=== PATIENT | male | born 1970 | race Caucasian/White ===

== ENCOUNTER 2016-08-19 21:07 | Observation (INO) | payer SELFPAY ==
[~2016-08-19] VITALS: Ht 177.8 cm; Wt 83.5 kg
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
--- NOTE | ~2016-08-19 | ER ---
PATIENT'S NAME: ALEXEY KUHN [facility] AGE: 45 Y [address] ROOM: [place] [address] LOCATION: [facility] ADMIT DATE: 08/20/2016 ER/Outpatient Report DISCHARGE DATE: FAMILY PHYSICIAN: PHYSICIAN, UNKNOWN ATTENDING PHYSICIAN: LARRY PETERSON CHIEF COMPLAINT: Fall down stairs. HISTORY OF PRESENT ILLNESS: The patient arrives by ambulance from [place]. They state he has had some decreased interactivity and intermittent loss of consciousness. Always, he has been brief. He was initially verbal and has had decline in his response since then. Vital signs have been appropriate. The patient states he has significant pain in his left shoulder and has diabetes. He has had shoulder surgery about a year and half ago. He denies any other acute issues at this time. He has fallen like this before and just kind of passed out, he does not know why. No other acute issues at this time. PAST MEDICAL HISTORY: Documented on the record and reviewed by me. SOCIAL HISTORY: Documented on the record and reviewed by me. MEDICATIONS: Documented on the record and reviewed by me. ALLERGIES: DOCUMENTED ON THE RECORD AND REVIEWED BY ME. REVIEW OF SYSTEMS: All systems reviewed and negative except as noted in the HPI. PHYSICAL EXAMINATION: VITAL SIGNS: Blood pressure 159/91, pulse 102, respiratory rate is 78, temp is 98.7, SpO2 is 100% on 15 L, non-rebreather. Pain level is rated at 9/10. GENERAL: Age-appropriate male, in no obvious distress. He had an obvious pain holding his left shoulder. NEURO: The patient is awake, but difficult to arouse initially. He talks appropriately, but you have to encourage him significantly to do so. He appears as though he is just staring off into space. He does have purposeful movement while he is being evaluated but often times will not communicate with the examiner. He does move all extremities appropriately. 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 ROOM: [place] [id number] LOCATION: [facility] ADMIT DATE: 08/20/2016 ER/Outpatient Report DISCHARGE DATE: FAMILY PHYSICIAN: PHYSICIAN, UNKNOWN ATTENDING PHYSICIAN: LARRY PETERSON hands, but is very difficult to get him to do so on the left side. He moves both feet and ankles appropriately. He does have diabetic neuropathy and has some decreased sensation in the feet. HEENT: Normocephalic, atraumatic. The TMs are normal. No midface instability. Eyes are PERRL. Extraocular movements are intact. The nasal mucosa and oral mucosa are normal to inspection and palpation. No obvious abnormalities. NECK: C-collar is in place. No tracheal deviation. There is some pain in the neck, particularly in the lower C-spine. CHEST: Chest wall is tender to palpation throughout the left side and up into the left shoulder. HEART: Regular rate and rhythm. LUNGS: Clear to auscultation with bilateral breath sounds present. ABDOMEN: Soft, nontender, and nondistended. No rebound, guarding, or masses. PELVIS: Stable. : Normal male genitalia and circumcised. BACK: Diffusely tender throughout the lower thoracic and diffuse lumbar spine. No step-offs appreciated. The patient has normal rectal tone. No gross blood. EXTREMITIES: Warm and well perfused. Significant severe pain in the left shoulder region without crepitus. Intermittently able to examine it. No obvious deformities. The extremities are all neurovascularly intact with brisk pulses and brisk capillary refill. SKIN: Warm, dry, and intact. No obvious breakdowns and no obvious contusions. LABORATORY DATA AND X-RAYS: CT scan of the head, C-spine, chest, abdomen, and pelvis are without abnormalities per Radiology read. Plain films of the left knee did not reveal any abnormalities. Chest x-ray without rib fractures or pneumothorax. Labs: Urinalysis is normal. Serum lactate is 3.8. CBC is without significant abnormalities. Blood gas: pH 7.40, pCO2 is 41, PO2 is 34, bicarb is 24.9. This is a venous sample. Calcium 4.6, sodium 133, potassium 4.1, glucose 434, PTT is 25, INR is 1.1, fibrinogen is 325. Serum alcohol is below detectable threshold. Amylase and lipase are 29 and 123 respectively. Blood type is A positive. IMPRESSION: 1. Syncope undetermined etiology, recurrent. 2. Severe left shoulder pain. 3. Persistent neck pain. 4. Elevated blood sugar with poorly controlled diabetes. EMERGENCY DEPARTMENT COURSE: PATIENT'S NAME: ALEXEY KUHN [facility] AGE: 45 Y [address] ROOM: [id number] [place], [place] [address] LOCATION: [facility] ADMIT DATE: 08/20/2016 ER/Outpatient Report DISCHARGE DATE: FAMILY PHYSICIAN: PHYSICIAN, UNKNOWN ATTENDING PHYSICIAN: LARRY PETRESON The patient is seen and evaluated as above. He was assessed by trauma protocols. Imaging does not reveal any abnormalities. I specifically looked at his shoulder on the films and there was no obvious fracture abnormality appreciated and soft tissue damage likely. The patient had persistent neck pain upon trying to clear his C-spine and thus he was placed in an Howard collar, which he intermittently would wear in the ER. He was given fentanyl and [place] for pain with poor pain control. We did try to ambulate the patient, but he had a syncopal episode. At that time, an EKG was obtained with no significant abnormalities per my read. The results of the CT scans were obtained and the patient was ultimately admitted to the Hospitalist Service for further evaluation and treatment of the syncopal episode as there is no significant injury at this time. He was also given some Toradol for his pain with no significant improvement. He was given 5 units of insulin to help control his blood sugars. No evidence of DKA or significant metabolic derangement related to that. Urine drug screen is pending. He remained stable otherwise. We will admit him to the Hospitalist Service for further evaluation and treatment. MD MARILU CHILDERS/modl /[id number] d: 08/20/16 0748 t: 08/29/1614, OUTPATIENT REPORT
--- NOTE | ~2016-08-19 | DS ---
PATIENT'S NAME: ALEXEY KUHN [facility] AGE: 45 Y [address] ROOM: [place] [address] LOCATION: [facility] ADMIT DATE: 08/20/2016 Discharge Summary DISCHARGE DATE: 08/20/2016 FAMILY PHYSICIAN: Corey Garnica MD ATTENDING PHYSICIAN: Rubens Hernandez Please see the admitting H and P (history and physical) dictated by Dr. Hernandez for a more detailed outline of the patient's presentation. DISCHARGE DIAGNOSES: 1. Status post fall. 2. Syncopal episode. 3. Chronic pain. 4. Diabetes, type 2. 5. Anxiety/depression. 6. Hypothyroidism. DISCHARGE MEDICATIONS: 1. Neurontin 800 mg p.o. t.i.d. 2. Glyburide 5 mg p.o. daily. 3. Levothroid 100 mcg p.o. daily. 4. Protonix 40 mg p.o. daily. 5. Zocor 40 mg p.o. at bedtime. 6. Tricor 160 mg p.o. at bedtime. 7. Oxycodone HCl 10 mg p.o. q.4 hours p.r.n. pain. 8. Xanax 1 mg p.o. daily p.r.n. anxiety. 9. Flexeril 10 mg p.o. daily p.r.n. spasm and sleep. 10. Farxiga 10 mg p.o. daily. 11. Nicorette gum 4 mg p.o. every 2 hours p.r.n. 12. It Works supplement 2 capsules daily. Please refer to the admitting H and P (history and physical) dictated by Dr. Hernandez. LABORATORY DATA AND DIAGNOSTIC STUDIES: CT scan of the head, C-spine, chest, abdomen, and pelvis are without abnormalities. No acute fractures or acute injuries. The patient did have an elevated TSH (thyroid-stimulating hormone) of 6.180. T4 was scheduled to be obtained. The patient was discharged before this was obtained. Urine drug screen was positive for benzodiazepines and opiates. Cardiac enzymes x1 were negative. PATIENT'S NAME: ALEXEY KUHN [facility] AGE: 45 Y [address] ROOM: [place] [address] LOCATION: [facility] ADMIT DATE: 08/20/2016 Discharge Summary DISCHARGE DATE: 08/20/2016 FAMILY PHYSICIAN: Corey Garnica MD ATTENDING PHYSICIAN: Rubens Hernandez Hemoglobin A1c is 9.0. HOSPITAL COURSE: Please refer to the admitting H and P (history and physical). The patient was admitted to [facility]. Pain was his cheif complaint. He was given morphine IV intermittently for severe pain alonf with oral oxycodone at this home dose of 10mg, this was ordered TID. The patient was seen in the late afternoon on 08/20/2016. The morphine by vein was discontinued. At that point, the patient was motivated to discharge home. The patient was able to have his Marty collar removed, given no acute fracture seen on the CT scan. DISCHARGE MEDICATIONS: Ultimately, the patient is being discharged home on his home medicines. DISCHARGE FOLLOWUP: He should follow up with Dr. Corey Garnica, his primary care physician on a p.r.n. basis. The patient voiced verbal understanding. SURINDER CASANOVA PA-C FOR MD NELSON CHUNG/modl /[id number] CC: Corey Garnica MD d: 08/21/16 0242 t: 08/23/16 1822, DISCHARGE SUMMARY
[~2016-08-19 21:07] MED LIST: AUGMENTIN875 MG PO; CYCLOBENZAPRINE5 MG; CYMBALTA30 MG PO; FARXIGA10 MG PO; FASTIN **IA 9/30 MG PO; FLEXERIL10 MG PO; GABAPENTIN800 MG PO; GLUCOPHAGE1000 MG PO; GLYBURIDE5 MG PO; JANUMET 50-1,01 EACH PO; LEVOTHROID (S100 MCG PO; LOTRIMIN30 GM TOP; MOTRIN400 MG PO; NICORETTE4 MG PO; NORCO 10-325 T1 EACH PO; OXYCODONE HCL10 MG PO; PROTONIX40 MG PO; SENOKOT S (S1 TABLET PO; SYNTHROID25 MCG PO; TRICOR 160 MG160 MG PO; XANAX1 MG PO; ZOCOR40 MG PO; [UNRECOGNIZED DRUG - OTHER] PO; [UNRECOGNIZED DRUG - OTHER] PO
[2016-08-19 21:33] LABS: BASOPHIL # 0.1 K/uL (0.0-0.2); BASOPHIL % 0.7 %; EOSINOPHIL # 0.2 K/uL (0.0-0.5); EOSINOPHIL % 1.6 %; HEMATOCRIT 45.5 % (37.0-53.0); HEMOGLOBIN 15.5 g/dL (12.0-17.0); IMMATURE GRANULOCYTE % 0.3 %; LYMPHOCYTE # 2.4 K/uL (0.8-4.0); LYMPHOCYTE % 26.6 %; MCH 29.6 pg (27.0-34.0); MCHC 34.1 gm/dL (32.0-36.5); MCV 86.8 fl (83.0-98.0); MONOCYTE # 0.7 K/uL (0.0-1.0); MONOCYTE % 7.2 %; MPV 9.3 fl (9.4-12.4); NEUTROPHIL # (ANC) 5.8 K/uL (1.4-9.0); NEUTROPHIL % 63.6 %; NRBC % 0 /100WBC (0-0.00); PLATELET COUNT 243 K/uL (150-450); RBC 5.24 M/uL (4.00-6.00); RDW-CV 12.7 % (11.9-14.6); WBC 9.2 K/uL (4.0-11.0)
[2016-08-19 21:36] LABS: BICARBONATE 24.9 mmol/L (18.0-23.0); PCO2 41 mmHg (35-45); PO2 34 mmHg (80-90)
[2016-08-19 21:37] LABS: POTASSIUM 4.1 mEq/L (3.7-5.1); SODIUM 133 mEq/L (135-145)
[2016-08-19 21:44] LABS: INR - (THERAPEUTIC) 1.1 (0.9-1.1); PROTIME 11.6 SECONDS (9.6-11.1); PTT 25 SECONDS (25-32)
[2016-08-19 21:55] LABS: ANION GAP 11.1 (10.0-19.0); BLOOD UREA NITROGEN 12 mg/dL (6-24); CHLORIDE 100 mMol/L (96-110); CREATININE 1.2 mg/dL (0.6-1.3); ESTIMATED GFR (MDRD EQUATION) > 60
[2016-08-19 23:01] LABS: BILIRUBIN URINE NEGATIVE (NEGATIVE); BLOOD URINE NEGATIVE /UL (NEGATIVE); COLOR URINE YELLOW (YELLOW); GLUCOSE URINE 1000 mg/dL (NEGATIVE); KETONE URINE NEGATIVE (NEGATIVE); LEUKOCYTES URINE NEGATIVE /UL (NEGATIVE); NITRITE URINE NEGATIVE (NEGATIVE); PROTEIN URINE NEGATIVE (NEGATIVE); SPEC GRAVITY URINE 1.005 (1.003-1.035); TURBIDITY URINE CLEAR (CLEAR); UROBILINOGEN URINE NORMAL (NORMAL)
--- NOTE | 2016-08-20 02:40 | NUR ---
PT ADMITTED POST FALL. FELL DOWN 13 STEPS AT HOME AND LANDED ON HARD FLOOR. IN ER ATTEMPTED TO AMBULATE AND HAD SYNCOPAL EPISODE HITTING THE FLOOR. HX OF CHRONIC LEFT ARM PAIN. STATES NECK PAIN-IN ASPEN COLLAR. HAS NIDDM. HX OF SMOKING AND CHEWING TOBACCO. HAS CHRONIC NEUROPATHY TO BILATERAL TOES. IN ER DID HAVE EPISODE OF BEING LESS RESPONSIVE FOR ABOUT 10-20 SECONDS WHILE LYING DOWN WELL.
--- NOTE | 2016-08-20 04:59 | NUR ---
Significant Event:Patient alert and oriented x3. Stood at bedside with assist only. Repostions self in bed. C/o pain to left shoulder into back with morphine x 1 at 0325 and oxycodone x1 at 0449. IV infusing ns to rt forearm x 1 liter at 150ml/hr. Accuchecks ac/hs with mild ssi. Voids per urinal standing up. Did notify Dr. medel of patient's depression and sucidal ideation. Pt is tearful easily, but has been willing to discuss some of his concerns. Does c/o some numbness to bilateral toes that has been chronic-moves all extremeties. Follows commands. Follow up:Monitor psychological status. Pain contorl.
[2016-08-20 06:38] LABS: CPK 56 IU/L (35-332)
[2016-08-20 07:13] LABS: BARBITURATE NEGATIVE (NEGATIVE); COCAINE NEGATIVE (NEGATIVE)
[2016-08-20 07:15] LABS: AMPHETAMINE NEGATIVE (NEGATIVE); OPIATES POSITIVE (NEGATIVE)
[2016-08-20] MEDS ORDERED: NEURONTIN800 MG PO (10:59)
[2016-08-20] MEDS ORDERED: [UNRECOGNIZED DRUG - OTHER] PO (10:59)
[2016-08-20] MEDS ORDERED: ZOCOR40 MG PO (10:59)
--- NOTE | 2016-08-20 11:17 | NUR ---
PT SCREENED D/T MST. WT DOWN 7# (3.7%) SINCE OCTOBER ADMIT - NOT SIGNIFICANT. NO NUTRITION RELATED DIAGNOSIS IDENTIFIED AT THIS TIME. WILL ASSIST NEEDED.
--- NOTE | 2016-08-20 15:47 | NUR ---
Introduced self and CM role to Chadd. He tells me that he lives in [place] with his dog. I asked him if he any other support at home as he had listed on his facesheet. He tells me that "they are working on that, but right now she isn't really there." I inquired about his depression and anxiety issues and if he felt like he was going to harm himself or anyone else in anyway, or if he thoughts of suicide. He tells me he does not at this time. He tells me he see's Poppy Elder at [facility] on a weekly basis. He sees her one time the first week and then two times the next, one time the next then two times the next and so forth. He denies any other questions, needs or concerns at this time. Chadd tells me that he will have a ride when he is ready to dismiss. Denies any need for additional DME/HHC upon discharge. He reports no issues with trying to get his medications upon dismissal. Will continue to follow and assist. Plan home.
--- NOTE | 2016-08-20 18:18 | NUR ---
Significant Event: PT A&O x3. VSS. IV dc'd. PT up ad kaitlin in room. Dismissal instructions given to PT, voiced understanding. PT wheeled to front lobby and dismissed to home. Follow up:
== END 2016-08-20 18:00 | disposition disaster alternative care site (69) ==
LOC: GACC 21:07 → GNTU 08-20 00:50
PROVIDERS: Emergency Medicine; ADMIT Internal Medicine
DX: G89.29 Other chronic pain (principal); M25.512 Pain in left shoulder; M25.562 Pain in left knee; M54.5 Low back pain; E11.9 Type 2 diabetes mellitus without complications; F41.8 Other specified anxiety disorders; E03.9 Hypothyroidism, unspecified; F11.20 Opioid dependence, uncomplicated; F17.210 Nicotine dependence, cigarettes, uncomplicated; Z98.890 Other specified postprocedural states; Z86.718 Personal history of other venous thrombosis and embolism; Z79.899 Other long term (current) drug therapy; W10.8XXA Fall (on) (from) other stairs and steps, initial encounter; Z91.81 History of falling; Y93.01 Activity, walking, marching and hiking
CPT/HCPCS: G0378; G0480; J1885; J2270; J3010; J7030; Q9967

== ENCOUNTER 2016-08-29 19:59 | Emergency (ER) | payer SELFPAY ==
--- NOTE | ~2016-08-29 | ER ---
PATIENT'S NAME: ALEXEY KUHN [facility] AGE: 45 Y [address] ROOM: [place] [address] LOCATION: [facility] ADMIT DATE: 08/29/2016 ER/Outpatient Report DISCHARGE DATE: 08/29/2016 FAMILY PHYSICIAN: Corey Garnica MD ATTENDING PHYSICIAN: Krystle Farah Time of Arrival: 1959 hours. Time of Evaluation: 2003 hours. IDENTIFICATION: A 45-year-old male. CHIEF COMPLAINT: Back pain. HISTORY OF PRESENT ILLNESS: The patient is a 45-year-old male brought in by ambulance from [place] with back pain. History is difficult to obtain from him as he just does not answer many questions. Back pain has been for 1 week. He states he fell and was seen here, and he did fall down some stairs on August 19 and subsequently admitted to the hospital. He had a lumbar spine CT, which was negative. He actually had thoracic and cervical spine CT, as well as chest, abdomen, and pelvis, and head CT, which were all negative. The patient has continued to have pain in his low back. I did try to obtain history from him as far as what he was taking for his back, and he told me nothing, but apparently, he is on Xanax daily. He did tell the EMS that brought him in that he had taken a pain medicine and muscle relaxant of his mother's. He denied that to the nurse checking him in, and when I asked him, he would not answer. He has no numbness or tingling. No bowel or bladder problems. No recent falls since that fall a week ago. No other problems or concerns. ALLERGIES: NO KNOWN DRUG ALLERGIES. CURRENT MEDICATIONS: He did not bring his medications with him, but he is discharged last week on: 1. Neurontin 800 mg t.i.d. 2. Glyburide 5 mg daily. 3. Levothroid 100 mcg daily. 4. Protonix 40 mg daily. 5. Zocor 40 mg h.s. 6. Tricor 160 mg at h.s. 7. Oxycodone p.r.n. pain. 8. Xanax p.r.n. anxiety. 9. Flexeril p.r.n. PATIENT'S NAME: ALEXEY KUHN [facility] AGE: 45 Y [address] ROOM: [place] [address] LOCATION: [facility] ADMIT DATE: 08/29/2016 ER/Outpatient Report DISCHARGE DATE: 08/29/2016 FAMILY PHYSICIAN: Corey Garnica MD ATTENDING PHYSICIAN: Krystle Farah 10. Farxiga 10 mg daily. 11. Nicorette gum p.r.n. MEDICAL PROBLEMS: Diabetes mellitus type 2, opioid dependence, anxiety disorder, depression, hypothyroidism, noncompliance. SOCIAL HISTORY: The patient lives in [place]. Tobacco use, half pack per day and one can of tobacco. Alcohol use, denies. Drug use, denies. REVIEW OF SYSTEMS: All systems reviewed and negative other than what is noted in the HPI. PHYSICAL EXAMINATION: VITAL SIGNS: Height 6 feet 0 inches, weight 80.1 kg. Blood pressure 139/80, pulse 109, respirations 22, temperature 99.7, sats 100%. GENERAL: A 45-year-old male, who complains of low back pain. HEENT: Unremarkable. LUNGS: Clear to auscultation. HEART: Regular rate and rhythm. ABDOMEN: Soft, nondistended, nontender. SKIN: [place], warm, and dry. NEURO: No focal deficit. Negative straight leg raise bilaterally. He does have pain in his lumbar spine, paraspinal muscles. LABORATORY DATA AND X-RAYS: Sodium 134, potassium 4.1, chloride 100, CO2 of 26, BUN 19, creatinine 1.2, blood sugar 378. Liver enzymes normal. UA negative. There are 0-2 white cells, 0-2 red cells, 0-2 epithelial cells, 1000 glucose, venous pH 7.46. Serum ketones are negative. Urine drug screen positive for benzodiazepines and opiates. Hemoglobin 15, hematocrit 44.4, platelets 310, white count 10.9. EMERGENCY DEPARTMENT COURSE: The patient was given fentanyl for pain control with no relief. He was given Toradol 15 mg IV with minimal relief. When I go to talk to the patient about his pain control, he really does not answer my questions, although it does appear his pain has improved from 20 to 5. IMPRESSION: 1. Chronic back pain. 2. Diabetes mellitus, noncompliance. 3. Hyperglycemia. PLAN: PATIENT'S NAME: ALEXEY KUHN [facility] AGE: 45 Y [address] ROOM: [place] [address] LOCATION: [facility] ADMIT DATE: 08/29/2016 ER/Outpatient Report DISCHARGE DATE: 08/29/2016 FAMILY PHYSICIAN: Corey Garnica MD ATTENDING PHYSICIAN: Krystle Farah Discussed with Dr. Garnica. The patient will be discharged home to rest. Tylenol or Advil for pain. Follow up with Dr. Garnica in 1 to 2 days. Follow up sooner if any problems or concerns. KRYSTLE FARAH MD CAR/modl /[id number] d: 08/30/16 0345 t: 08/30/16 0454, OUTPATIENT REPORT
[~2016-08-29 19:59] MED LIST changes: +NEURONTIN800 MG PO; +[UNRECOGNIZED DRUG - OTHER] PO
[2016-08-29 20:36] LABS: BASOPHIL % 0.3 %; EOSINOPHIL % 0.4 %; HEMATOCRIT 44.4 % (37.0-53.0); IMMATURE GRANULOCYTE # 0.1 K/uL (0.0-0.3); IMMATURE GRANULOCYTE % 0.5 %; LYMPHOCYTE # 1.4 K/uL (0.8-4.0); LYMPHOCYTE % 12.6 %; MCH 29.5 pg (27.0-34.0); MCHC 33.8 gm/dL (32.0-36.5); MCV 87.2 fl (83.0-98.0); MONOCYTE # 0.9 K/uL (0.0-1.0); MONOCYTE % 8.5 %; MPV 9.4 fl (9.4-12.4); NEUTROPHIL # (ANC) 8.5 K/uL (1.4-9.0); NEUTROPHIL % 77.7 %; NRBC % 0 /100WBC (0-0.00); RBC 5.09 M/uL (4.00-6.00); RDW-CV 12.6 % (11.9-14.6); WBC 10.9 K/uL (4.0-11.0)
[2016-08-29 20:38] LABS: PLATELET COUNT 310 K/uL (150-450)
[2016-08-29 20:52] LABS: ALBUMIN 3.1 gm/dL (3.5-5.0); ALK PHOS 68 IU/L (33-138); ALT 18 IU/L (12-78); BLOOD UREA NITROGEN 19 mg/dL (6-24); CHLORIDE 100 mMol/L (96-110); CO2 26 mMol/L (22-32); CREATININE 1.2 mg/dL (0.6-1.3); ESTIMATED GFR (MDRD EQUATION) > 60; SODIUM 134 mMol/L (135-145); TOTAL BILIRUBIN 0.8 mg/dL (0.0-1.5); TOTAL PROTEIN 8.1 g/dL (6.0-8.4)
[2016-08-29 20:53] LABS: ANION GAP 12.1 (10.0-19.0); AST 17 IU/L (10-40); POTASSIUM 4.1 mMol/L (3.7-5.1)
[2016-08-29 21:54] LABS: BILIRUBIN URINE NEGATIVE (NEGATIVE); BLOOD URINE NEGATIVE /UL (NEGATIVE); COLOR URINE YELLOW (YELLOW); GLUCOSE URINE 1000 mg/dL (NEGATIVE); KETONE URINE 50 mg/dL (NEGATIVE); LEUKOCYTES URINE 25 /UL (NEGATIVE); NITRITE URINE NEGATIVE (NEGATIVE); PROTEIN URINE 30 mg/dL (NEGATIVE); TURBIDITY URINE CLEAR (CLEAR); UROBILINOGEN URINE 1 mg/dL (NORMAL)
[2016-08-29 22:02] LABS: BACTERIA URINE RARE (NEGATIVE); EPITHELIAL URINE 0-2 #/HPF (NEGATIVE); RBC URINE 0-2 #/HPF (NEGATIVE); WBC URINE 0-2 #/HPF (NEGATIVE)
[2016-08-29 22:12] LABS: BARBITURATE NEGATIVE (NEGATIVE); COCAINE NEGATIVE (NEGATIVE)
[2016-08-29 22:13] LABS: AMPHETAMINE NEGATIVE (NEGATIVE); OPIATES POSITIVE (NEGATIVE)
== END 2016-08-29 22:53 | disposition disaster alternative care site (69) ==
LOC: GMED 19:59
PROVIDERS: Family Medicine
DX: G89.29 Other chronic pain (principal); M54.5 Low back pain; E11.65 Type 2 diabetes mellitus with hyperglycemia; E03.9 Hypothyroidism, unspecified; F11.20 Opioid dependence, uncomplicated; F32.9 Major depressive disorder, single episode, unspecified; F41.9 Anxiety disorder, unspecified; F17.210 Nicotine dependence, cigarettes, uncomplicated
CPT/HCPCS: J1885; J3010

== ENCOUNTER 2016-09-12 11:57 | Emergency (ER) | payer SELFPAY ==
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
== END 2016-09-12 12:25 | disposition disaster alternative care site (69) ==
LOC: GMED 11:57
DX: G89.29 Other chronic pain (principal); M54.5 Low back pain; E11.9 Type 2 diabetes mellitus without complications; F17.210 Nicotine dependence, cigarettes, uncomplicated; Z98.890 Other specified postprocedural states; Z79.84 Long term (current) use of oral hypoglycemic drugs; Z79.899 Other long term (current) drug therapy

== ENCOUNTER 2016-09-17 18:53 | Emergency (ER) | payer SELFPAY ==
--- NOTE | ~2016-09-17 | ER ---
PATIENT'S NAME: ALEXEY KUHN [facility] AGE: 45 Y [address] ROOM: [place] [id number] LOCATION: [facility] ADMIT DATE: 09/17/2016 ER/Outpatient Report DISCHARGE DATE: 09/17/2016 FAMILY PHYSICIAN: Physician, Unknown ATTENDING PHYSICIAN: Shabbir Griffith Time of Arrival: 1913 hours. Time of Evaluation: 1923 hours. CHIEF COMPLAINT: Back pain. HISTORY OF PRESENT ILLNESS: The patient is a 45-year-old male, who presents to the emergency department today with a chief complaint of back pain. He reports he injured it about 5 weeks prior to arrival . He reports he has been seen here in the emergency department as well as [facility]. He has had imaging done that was all negative, but he continues to have pain. Apparently, he was recently fired by his previous primary care doctor, Dr. Garnica. He is awaiting to get into a family practice. He reports sharp pain that is spasming, that comes and goes. Denies any loss of bowel or bladder. No saddle anesthesia. Denies any fevers or chills. No nausea or vomiting. No diarrhea or constipation. PAST MEDICAL HISTORY: Previous back injury, gcu-tvyoudv-ymcxppwyi diabetes, and hypothyroidism. PAST SURGICAL HISTORY: Left shoulder and multiple left knee surgeries. SOCIAL HISTORY: The patient smokes 1/2 pack per day for 20 years. Denies any alcohol or illicit drug use. ALLERGIES: NO KNOWN DRUG ALLERGIES. MEDICATIONS: Please see list. PRIMARY CARE DOCTOR: None. REVIEW OF SYSTEMS: All systems are reviewed by myself and are negative with the exception of those discussed in the HPI and past medical history. PATIENT'S NAME: ALEXEY KUHN [facility] AGE: 45 Y [address] ROOM: [place], [place] [address] LOCATION: [facility] ADMIT DATE: 09/17/2016 ER/Outpatient Report DISCHARGE DATE: 09/17/2016 FAMILY PHYSICIAN: Physician, Unknown ATTENDING PHYSICIAN: Shabbir Griffith PHYSICAL EXAMINATION: VITAL SIGNS: Weight 74.3. Blood pressure 181/101, pulse 131, respiratory rate 18, temperature 98.0, and oxygen saturation 96% on room air. GENERAL: The patient is a 45-year-old male, who appears at his stated age, in mild acute distress. HEENT: Normocephalic, atraumatic. Pupils are equal, round, and reactive to light and accommodation. Extraocular motions are intact. Nares are patent bilaterally. TMs are clear. Oropharynx is clear. NECK: Supple. There is no nuchal rigidity. CARDIOVASCULAR: Tachycardic. No murmurs, rubs, or gallops. LUNGS: Clear to auscultation bilaterally. No wheezes, rales, or rhonchi. ABDOMEN: Soft, nontender, nondistended. No rebound, rigidity, or guarding. MUSCULOSKELETAL: The patient has tenderness to palpation bilaterally, paraspinal musculature of the lumbar spine. SKIN: Warm and dry. There are no rashes or lesions noted. LABORATORY DATA AND X-RAYS: Old records are reviewed from 08/19/2016. CT scans of the lumbar spine showed mild left paracentral posterior bulging at L5-S1, T-spine was negative, C- spine was negative. CT scan of the chest, abdomen, and pelvis was unremarkable as well as brain was unremarkable. IMPRESSION: 1. Acute on chronic back pain. 2. Initial visit. EMERGENCY DEPARTMENT COURSE: I did contact [facility] and obtained reports from [facility]. He did undergo MRI evaluation and has seen Dr. Loza. MRI report is reviewed by myself. It does show no significant disk herniation. This was performed on 08/31/2016. I did discuss the case with Dr. Radha Lund who saw the patient last night in the emergency department and does report that she performed a trigger point injection and recommended ibuprofen. I have discussed with the patient that we will attempt to provide him some relief here in the emergency department. He is given 10 mg of Valium IM as well as 1 mg of Dilaudid IM and 60 mg of prednisone p.o. He has requested an oral pain medicine for home. I have discussed with him that I do not feel comfortable giving him these medications with his past history. I have asked he follow up with primary care doctor, he may need to see Pain Management. I have written a prescription for lidocaine, prednisone, and Flexeril with sedation warning. Discussed yjhsyi-ag-dmva instructions including worsening of symptoms or any other concerns to return to the emergency department as soon as possible. The patient is agreeable without further questions at this time. DISPOSITION: The patient is discharged to home in good condition. PATIENT'S NAME: ALEXEY KUHN [facility] AGE: 45 Y [address] ROOM: [place], [place] [address] LOCATION: [facility] ADMIT DATE: 09/17/2016 ER/Outpatient Report DISCHARGE DATE: 09/17/2016 FAMILY PHYSICIAN: Physician, Unknown ATTENDING PHYSICIAN: Shabbir Griffith DO TIMOTEO GALINDO/riazl /[id number] d: 09/18/16 0245 t: 09/18/16 0535, OUTPATIENT REPORT
== END 2016-09-17 20:56 | disposition disaster alternative care site (69) ==
LOC: GMED 18:53
DX: G89.29 Other chronic pain (principal); M54.5 Low back pain; F17.210 Nicotine dependence, cigarettes, uncomplicated; E11.9 Type 2 diabetes mellitus without complications; E03.9 Hypothyroidism, unspecified
CPT/HCPCS: J1170; J3360; J7512

== ENCOUNTER 2016-09-21 12:45 | Inpatient (IN) | payer SELFPAY ==
[~2016-09-21] VITALS: Ht 180.3 cm; Wt 76.4 kg
--- NOTE | ~2016-09-21 | ER ---
PATIENT'S NAME: ALEXEY KUHN [facility] AGE: 45 Y [address] ROOM: [place] [address] LOCATION: [facility] ADMIT DATE: 09/21/2016 ER/Outpatient Report DISCHARGE DATE: FAMILY PHYSICIAN: PHYSICIAN, NO ATTENDING PHYSICIAN: Mitzy RILEY CHIEF COMPLAINT: Back pain. HISTORY OF PRESENT ILLNESS: The patient states that he was feeling pretty good yesterday, however, today, his back pain is excruciating and worse than it has ever been. He denies any weakness but states it is incredibly painful for him to stand up and walk, and he has had difficulty getting out of bed. He states that the pain is in the same location and same character usually as but the intensity is different. Of note, he has been at this emergency department several times in the last month for back issues. He has long-standing chronic back pain. He has been evaluated by spine surgeon, Dr. Loza, in the past. His most recent imaging was at the end of July for a fall. He denies any other major issues at this time. He has had no fevers, chills, nausea, or vomiting. He was most recently seen at this facility on of this month 4 days ago for similar presentation. According to the other records, he has been at [facility] as well. He was recently fired by Dr. Garnica, his former primary care physician. He states no changes in bowel or bladder habits. Past medical history, social history, medications, and allergies are documented on the record. PAST MEDICAL HISTORY: Most significant for poorly controlled diabetes, hypothyroidism, and chronic back pain. SOCIAL HISTORY: Current smoker. ALLERGIES: NO KNOWN ALLERGIES. MEDICATIONS: Please see list. REVIEW OF SYSTEMS: All systems were reviewed and negative except as noted in the HPI. PHYSICAL EXAMINATION: PATIENT'S NAME: ALEXEY KUHN [facility] AGE: 45 Y [address] ROOM: [place] [address] LOCATION: [facility] ADMIT DATE: 09/21/2016 ER/Outpatient Report DISCHARGE DATE: FAMILY PHYSICIAN: PHYSICIAN, NO ATTENDING PHYSICIAN: Mitzy RILEY VITAL SIGNS: Blood pressure 155/116, pulse is 126, respiratory rate is 20, temperature 98.7, SpO2 is 97% on room air. Pain is rated 10/10. GENERAL: An age-appropriate male, in obvious pain. Crying on the exam table, in no obvious distress. NEUROLOGIC: The patient is awake and alert. GCS is 15. No focal deficits. No asymmetry on exam. Strength of all extremities is symmetric, limited by lower lumbar back pain. It is poorly localized. HEENT: Normocephalic, atraumatic. Eyes are PERRL. Oropharynx is clear. NECK: Supple. Trachea is midline. CHEST: Heart is regular rate and rhythm, borderline tachycardia. No murmurs. LUNGS: Clear to auscultation bilateral grossly. ABDOMEN: Soft, nontender, and nondistended. No rebound or guarding. BACK: Tender at the lumbar spine, poorly localizable. No CVA tenderness. EXTREMITIES: Warm and well perfused. No obvious abnormalities. SKIN: Warm, dry, intact. LABORATORY DATA AND X-RAYS: Labs: CMS is notable for mild hypokalemia at 3.6, renal function is appropriate. GFR is greater than 60. No significant abnormalities of the LFTs. CBC: Grossly unremarkable. Urinalysis with no obvious abnormalities. IMPRESSION: Intractable chronic back pain. EMERGENCY DEPARTMENT COURSE: The patient was seen and evaluated as above. He was given cocktails, which had previously helped him, which include Valium 10 mg and Dilaudid 1 mg without any improvement in his symptoms. He was given another dose of IM Dilaudid. He continued to be unable to sit up and was in excruciating pain with "no improvement" despite the fact that he had no longer crying and appeared much more comfortable. Based on his history and concerns for narcotic abuse, I will not prescribe him any narcotics. As he is continuing to have intractable pain, he will need to be admitted to the hospitalist service. Dr. Riley was made aware of the patient and the overall situation. The patient will be admitted as an observation patient for pain control. All questions were answered, and the patient was admitted without further issue. MD MARILU CHILDERS/giovana PATIENT'S NAME: ALEXEY KUHN [facility] AGE: 45 Y [address] ROOM: [address] [address] LOCATION: [facility] ADMIT DATE: 09/21/2016 ER/Outpatient Report DISCHARGE DATE: FAMILY PHYSICIAN: BREANNA LOZA ATTENDING PHYSICIAN: Mitzy RILEY /[id number] d: 09/21/16 2336 t: 10/10/16 0853, OUTPATIENT REPORT
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
[2016-09-21 15:34] LABS: BILIRUBIN URINE NEGATIVE (NEGATIVE); BLOOD URINE NEGATIVE /UL (NEGATIVE); COLOR URINE YELLOW (YELLOW); GLUCOSE URINE 1000 mg/dL (NEGATIVE); KETONE URINE NEGATIVE (NEGATIVE); LEUKOCYTES URINE NEGATIVE /UL (NEGATIVE); NITRITE URINE NEGATIVE (NEGATIVE); PH URINE 6.5 (4.0-8.0); PROTEIN URINE 30 mg/dL (NEGATIVE); TURBIDITY URINE CLEAR (CLEAR); UROBILINOGEN URINE NORMAL (NORMAL)
[2016-09-21 15:44] LABS: BASOPHIL % 0.4 %; EOSINOPHIL # 0.1 K/uL (0.0-0.5); EOSINOPHIL % 0.5 %; HEMATOCRIT 40.7 % (37.0-53.0); HEMOGLOBIN 14.1 g/dL (12.0-17.0); IMMATURE GRANULOCYTE # 0.1 K/uL (0.0-0.3); IMMATURE GRANULOCYTE % 0.6 %; LYMPHOCYTE # 2.9 K/uL (0.8-4.0); LYMPHOCYTE % 26.6 %; MCH 28.8 pg (27.0-34.0); MCHC 34.6 gm/dL (32.0-36.5); MCV 83.2 fl (83.0-98.0); MONOCYTE % 8.8 %; MPV 8.9 fl (9.4-12.4); NEUTROPHIL # (ANC) 6.9 K/uL (1.4-9.0); NEUTROPHIL % 63.1 %; NRBC % 0 /100WBC (0-0.00); PLATELET COUNT 307 K/uL (150-450); RBC 4.89 M/uL (4.00-6.00); RDW-CV 11.7 % (11.9-14.6); WBC 10.9 K/uL (4.0-11.0)
[2016-09-21 15:45] LABS: BACTERIA URINE NEGATIVE (NEGATIVE); EPITHELIAL URINE 0-2 #/HPF (NEGATIVE); RBC URINE RARE #/HPF (NEGATIVE); WBC URINE 0-2 #/HPF (NEGATIVE)
[2016-09-21 16:00] LABS: ALK PHOS 72 IU/L (33-138); ALT 12 IU/L (12-78); ANION GAP 11.6 (10.0-19.0); AST 6 IU/L (10-40); BLOOD UREA NITROGEN 18 mg/dL (6-24); CALCIUM 8.8 mg/dL (8.5-10.5); CHLORIDE 104 mMol/L (96-110); CO2 27 mMol/L (22-32); ESTIMATED GFR (MDRD EQUATION) > 60; POTASSIUM 3.6 mMol/L (3.7-5.1); SODIUM 139 mMol/L (135-145); TOTAL PROTEIN 7.5 g/dL (6.0-8.4)
[2016-09-21 16:01] LABS: TOTAL BILIRUBIN 0.3 mg/dL (0.0-1.5)
[2016-09-21] MEDS ORDERED: DELTASONE20 MG PO (19:04)
--- NOTE | 2016-09-21 19:12 | NUR ---
Admission note: Admitted 45 year old male with back pain. Patient reports he has been in the hospital many times for back pain. Reports the pain became much worse this am around 0230. He reports his mom brought him to emergency room today. When asked data base questions he was slow to repsond and would not open eyes unless asked to. Did respond approriately. CSM adequate. Reports he has not eaten in 2 days. Reports he is unable to work due to back pain. he is alert and oriented.
--- NOTE | 2016-09-22 05:12 | NUR ---
Pt. AA&OX3. Room air. IV to R) forearm. Saline locked. 1 assist. Pneumatic devices. VSS. Last pain med at 0245. Last scheduled valium at 2100. ACCU checks ACHS. 2 Units. Patient on Lovenox. Pt on observation. Diabetic Diet. Pt appears to be resting peacefully until staff walks in room.
[2016-09-22] MEDS ORDERED: VALTREX (NON-F500 MG PO (18:06)
--- NOTE | 2016-09-22 19:01 | NUR ---
Significant Event: Pt was given roxycodone at 0720 and 1456. He was given flexeril at 1456. Nucynta at 1247. Pt rates pain a "8" most of the time. He requested shot for pain, would not order. He did walk in the [facility] with PT. He was able to shower independently. PT has obvious times where the pain just grabs at him. He is able lay in bed and lift feet off the bed to remove pneumatics when he gets up. Pt was given his meds this am. When mom arrived with his home meds, pt took his daily meds from his med set. By doing that he recieved double doses of Levothyroxine and protonix. He took zocor which was scheduled for this pm. Pt has not had his oral diabetes medication for 3 days. They were started today. His blood sugar was 329, 428, 443 and 329. Insulin sliding scale was increased to Agressive. Pt had Amaryl in his bag of meds but did not have it in his daily med set. Pt stated that "I thought that was xanax, the little blue pills I take that 2-3 times." It is unclear if pt is supposed to be taking the Amaryl and if he is taking it or actually has xanax at home that he is taking. Pt c/o of numbness in his low back today. He stated "that is weird, I can't feel my back. I feel pressure if you touch but don't feel it." Pt had had a icy hot patch on that he had removed 1 hr prior to noticing the numbness. The icy patch was placed on his back at home yesterday. He reported numbness from the top of his buttock to his upper waist on his midline spine area. PT reported improvement in numbness when asked 1 hr later. Follow up:
--- NOTE | 2016-09-23 03:57 | NUR ---
Significant Event: Patient alert and oriented X4. Up ad kaitlin. Having pain issues. Called MD and got one time order for IV valium 5mg. Patient stated he had no relief. Gave PO roxicodone every 4-4.5 hours to help with pain, and scheduled nucynta and PO valium, but little relief. Patient insisted I call the DrWhit and Dr. Hernandez was up seeing another patient so he agreed to see him at this time. He ordered 1 time dose of 1mg IV dilaudid around 0320. Afterwards patient stated "thanks for letting me cheat." K pad to back, nicotine patch to L) arm. Monica refused to walk this shift stating he walked too much during the day. Follow up: Monitor pain
[2016-09-23 05:29] LABS: BASOPHIL % 0.1 %; EOSINOPHIL # 0.1 K/uL (0.0-0.5); EOSINOPHIL % 0.4 %; HEMATOCRIT 42.5 % (37.0-53.0); HEMOGLOBIN 14.5 g/dL (12.0-17.0); IMMATURE GRANULOCYTE # 0.1 K/uL (0.0-0.3); IMMATURE GRANULOCYTE % 0.9 %; LYMPHOCYTE # 3.3 K/uL (0.8-4.0); LYMPHOCYTE % 20.3 %; MCH 28.7 pg (27.0-34.0); MCHC 34.1 gm/dL (32.0-36.5); MCV 84.2 fl (83.0-98.0); MONOCYTE # 0.9 K/uL (0.0-1.0); MONOCYTE % 5.4 %; MPV 9.3 fl (9.4-12.4); NEUTROPHIL % 72.9 %; NRBC % 0 /100WBC (0-0.00); PLATELET COUNT 355 K/uL (150-450); RBC 5.05 M/uL (4.00-6.00); RDW-CV 11.8 % (11.9-14.6)
[2016-09-23 05:31] LABS: WBC 16.4 K/uL (4.0-11.0)
[2016-09-23 05:50] LABS: ANION GAP 10.9 (10.0-19.0); BLOOD UREA NITROGEN 20 mg/dL (6-24); CALCIUM 9.6 mg/dL (8.5-10.5); CHLORIDE 103 mMol/L (96-110); CO2 29 mMol/L (22-32); CREATININE 1.1 mg/dL (0.6-1.3); ESTIMATED GFR (MDRD EQUATION) > 60; MAGNESIUM 2.2 mg/dL (1.8-2.6); POTASSIUM 3.9 mMol/L (3.7-5.1); SODIUM 139 mMol/L (135-145)
[2016-09-23] MEDS ORDERED: VALIUM5 MG PO (14:29)
[2016-09-23] MEDS ORDERED: NUCYNTA100 MG PO (14:51)
--- NOTE | 2016-09-23 19:37 | NUR ---
Significant Event: Pt was dismissed to home. Pt requested dilaudid. ordered IV dilaudid prior to dismissal. He also ordered increased dose of nucynta prior to dc. Pt was given the meds. When giving the dismissal instructions the pt reported that he was going to add a zero to the amt of oxycodone on the script and laughed. Script read #10, nurse added the word ten under the number. Pt put his coat on to leave over his IV saline lock. Nurse remembered that he had it and removed it. Pt verbalizes how bad his pain is and then can have a normal conversation, laughing and joking. Pt was able to be up independently in his room.
== END 2016-09-23 15:30 | disposition disaster alternative care site (69) | DRG 948 ==
LOC: GMED 12:45 → GMSU 16:49
PROVIDERS: Emergency Medicine; Hospitalist; ADMIT Internal Medicine
DX: G89.11 Acute pain due to trauma (principal); E03.9 Hypothyroidism, unspecified; G89.29 Other chronic pain; M54.9 Dorsalgia, unspecified; Z91.81 History of falling; E11.9 Type 2 diabetes mellitus without complications; Z87.891 Personal history of nicotine dependence
CPT/HCPCS: J1170; J1650; J3360; J7512

== ENCOUNTER 2016-09-27 10:09 | Emergency (ER) | payer SELFPAY ==
--- NOTE | ~2016-09-27 | ER ---
PATIENT'S NAME: ALEXEY KUHN [facility] AGE: 45 Y [address] ROOM: [place] [address] LOCATION: [facility] ADMIT DATE: 09/27/2016 ER/Outpatient Report DISCHARGE DATE: 09/27/2016 FAMILY PHYSICIAN: Tam Vargas MD ATTENDING PHYSICIAN: Nick Lowe Admission date and time documented in the medical record. I saw the patient at 1030 hours. CHIEF COMPLAINT: Low back pain. HISTORY OF PRESENT ILLNESS: This is a 45-year-old male who comes in with low back pain, mostly on his right lower back. He has been in and out of our ER in our hospital along with [facility]. No other complaints. HOME MEDICATIONS: See attached medication list. ALLERGIES: NONE. SOCIAL HISTORY: The patient smokes a half to a pack of cigarettes per day. Occasional intake of alcohol. SIGNIFICANT PAST MEDICAL HISTORY: Tobacco abuse, dyslipidemia, mtk-pumzvco-fimvshylf diabetes mellitus, hypothyroidism, chronic back pain, depression, anxiety, and opioid dependence. OPERATIONS: Left shoulder surgery, bilateral knee surgery. REVIEW OF SYSTEMS: All systems reviewed by me are negative with the exception of those discussed in the history of present illness. PHYSICAL EXAMINATION: VITAL SIGNS: Temperature 97.7 tympanic, pulse 120 regular, respirations 22, blood pressure 174/117, and O2 saturation on room air is 97%. LUNGS: Clear. HEART: Regular. ABDOMEN: Soft, flat, nondistended, and nontender. Active bowel tones. MUSCULOSKELETAL: The patient has tenderness of lower back, especially in the PATIENT'S NAME: ALEXEY KUHN [facility] AGE: 45 Y [address] ROOM: [place] [address] LOCATION: [facility] ADMIT DATE: 09/27/2016 ER/Outpatient Report DISCHARGE DATE: 09/27/2016 FAMILY PHYSICIAN: Tam Vargas MD ATTENDING PHYSICIAN: Nick Lowe right lower back. EXTREMITIES: Intact. NEUROVASCULAR: Intact. IMPRESSION: Chronic low back pain. PLAN: The patient was given 4 mg of morphine, 60 mg of Toradol, 10 mg of Valium, 50 mg of Phenergan IM in the emergency room. Discharged home. Observation. Activity as tolerated. Continue present home medications and care. Follow up with personal physician as needed. MD ARVIND OSEGUERA/giovana /[id number] d: 09/27/16 1803 t: 09/28/16 0610, OUTPATIENT REPORT
[~2016-09-27 10:09] MED LIST changes: +DELTASONE20 MG PO; +NUCYNTA100 MG PO; +VALIUM5 MG PO; +VALTREX (NON-F500 MG PO
== END 2016-09-27 11:34 | disposition disaster alternative care site (69) ==
LOC: GMED 10:09
DX: M54.5 Low back pain (principal); G89.29 Other chronic pain; F17.210 Nicotine dependence, cigarettes, uncomplicated; E78.5 Hyperlipidemia, unspecified; E11.9 Type 2 diabetes mellitus without complications; E03.9 Hypothyroidism, unspecified; F11.20 Opioid dependence, uncomplicated; F41.9 Anxiety disorder, unspecified; F32.9 Major depressive disorder, single episode, unspecified; Z98.890 Other specified postprocedural states; Z79.899 Other long term (current) drug therapy
CPT/HCPCS: J1885; J2270; J2550; J3360

== ENCOUNTER 2016-09-28 10:11 | Emergency (ER) | payer SELFPAY ==
--- NOTE | ~2016-09-28 | ER ---
PATIENT'S NAME: ALEXEY KUHN [facility] AGE: 45 Y [address] ROOM: [place] [address] LOCATION: [facility] ADMIT DATE: 09/28/2016 ER/Outpatient Report DISCHARGE DATE: 09/28/2016 FAMILY PHYSICIAN: Tam Vargas MD ATTENDING PHYSICIAN: Nick Lowe Time of Arrival: Time of Evaluation: Admission date and time documented in the medical record. I saw the patient at 1020 hours. CHIEF COMPLAINT: Low back pain. HISTORY OF PRESENT ILLNESS: The patient is a 45-year-old male, who comes in with chronic low back pain mostly on his right side. The patient was here yesterday for pain medication. No bowel or bladder dysfunction. No other acute or new changes with his back pain. HOME MEDICATIONS: See attached medication list. ALLERGIES: NONE. SOCIAL HISTORY: The patient smokes half pack of cigarettes per day. Occasional intake of alcohol. SIGNIFICANT PAST MEDICAL HISTORY: 1. Tobacco abuse. 2. Dyslipidemia. 3. Oew-fnbusnc-fhstlxhpk diabetes mellitus, type 2. 4. Hypothyroidism. 5. Chronic back pain. 6. Depression and anxiety. 7. Opioid dependence. PAST SURGICAL HISTORY: Operations: 1. Left shoulder surgery. 2. Bilateral knee surgery. REVIEW OF SYSTEMS: All systems reviewed by me are negative with the exception of those discussed PATIENT'S NAME: ALEXEY KUHN [facility] AGE: 45 Y [address] ROOM: [place] [address] LOCATION: [facility] ADMIT DATE: 09/28/2016 ER/Outpatient Report DISCHARGE DATE: 09/28/2016 FAMILY PHYSICIAN: Tam Vargas MD ATTENDING PHYSICIAN: Nick Lowe in the History of the Present Illness. PHYSICAL EXAMINATION: VITAL SIGNS: Temperature 99.3, tympanic; respirations 17; blood pressure 129/79; and O2 saturation on room air is 97%. HEENT: Head; normocephalic. Eyes, Ears, Nose, Throat; clear. NECK: Negative spine. SPINE: No deformities. No step-off. LUNGS: Clear. HEART: Regular. ABDOMEN: Soft, nontender. Good bowel tones. The patient has tenderness across his lower back to percussion and palpation. EXTREMITIES: Intact. NEUROLOGIC: Neurovascularly intact. SKIN: Clear. IMPRESSION: Chronic low back pain. PLAN: The patient was given morphine 4 mg plus Valium 10 mg plus Toradol 60 mg IM in the emergency room. The patient dismissed to home. Observation. Activity as tolerated. Continue present home medications and care. Follow up with personal physician as needed. MD ARVIND OSEGUERA/modl /[id number] d: 09/28/16 1539 t: 09/29/16 0611, OUTPATIENT REPORT
== END 2016-09-28 11:29 | disposition disaster alternative care site (69) ==
LOC: GMED 10:11
DX: G89.29 Other chronic pain (principal); M54.5 Low back pain; E78.5 Hyperlipidemia, unspecified; E11.9 Type 2 diabetes mellitus without complications; E03.9 Hypothyroidism, unspecified; F17.210 Nicotine dependence, cigarettes, uncomplicated; F41.8 Other specified anxiety disorders; F11.20 Opioid dependence, uncomplicated; Z98.890 Other specified postprocedural states; Z79.899 Other long term (current) drug therapy
CPT/HCPCS: J1885; J2270; J3360

== ENCOUNTER 2016-10-01 11:03 | Emergency (ER) | payer SELFPAY ==
--- NOTE | ~2016-10-01 | ER ---
PATIENT'S NAME: ALEXEY KUHN [facility] AGE: 45 Y [address] ROOM: [place] [address] LOCATION: [facility] ADMIT DATE: 10/01/2016 ER/Outpatient Report DISCHARGE DATE: 10/01/2016 FAMILY PHYSICIAN: Travon Dugan MD Resident ATTENDING PHYSICIAN: Nick Lowe Admission date and time documented in the medical record. I saw the patient at 1130 hours. CHIEF COMPLAINT: Low back pain. HISTORY OF PRESENT ILLNESS: This patient is a 45-year-old male, who comes in with low back pain, worse on the left side. No sciatica or buttock pain. No bowel or bladder problems. This pain is chronic. He has been here multiple times. No new changes. HOME MEDICATIONS: See attached medication list. ALLERGIES: NONE. SOCIAL HISTORY: The patient smokes about half a pack of cigarettes per day. Occasional intake of alcohol. SIGNIFICANT PAST MEDICAL HISTORY: Tobacco abuse, dyslipidemia, cjp-foniftx-mimqtcfhg diabetes mellitus type 2, hypothyroidism, chronic back pain, anxiety, depression, and opioid dependence. OPERATIONS: Left shoulder surgery and bilateral knee surgery. REVIEW OF SYSTEMS: All systems reviewed by me are negative with the exception of those discussed in the history of present illness. PHYSICAL EXAMINATION: VITAL SIGNS: Blood pressure 127/83, pulse 130, respirations 16, and O2 saturation on room air is 96%. HEAD: Normocephalic. EYES, EARS, NOSE, THROAT: Clear. NECK: Negative. LUNGS: Clear. PATIENT'S NAME: ALEXEY KUHN [facility] AGE: 45 Y [address] ROOM: [place] [address] LOCATION: [facility] ADMIT DATE: 10/01/2016 ER/Outpatient Report DISCHARGE DATE: 10/01/2016 FAMILY PHYSICIAN: Travon Dugan MD Resident ATTENDING PHYSICIAN: Nick Lowe HEART: Regular. ABDOMEN: Soft. Nontender. Good bowel tones. No organomegaly or abnormal mass palpable. No true CVA tenderness. BACK: Low back pain across the lower back. EXTREMITIES: Moves all 4 extremities. No peripheral edema, cyanosis, or neuro deficits. SKIN: Clear. IMPRESSION: Chronic low back pain. PLAN: The patient was given morphine 2 mg, Valium 5 mg, Toradol 60 mg, and Phenergan 25 mg IM in the emergency room. Discharged home. Observation. Activity as tolerated. Continue present home medications and care. Follow up with personal physician in 1 to 2 days. MD ARVIND OSEGUERA/giovana /[id number] d: 10/01/162008 t: 10/02/16 0612, OUTPATIENT REPORT
== END 2016-10-01 12:00 | disposition disaster alternative care site (69) ==
LOC: GMED 11:03
DX: G89.29 Other chronic pain (principal); M54.5 Low back pain; F17.210 Nicotine dependence, cigarettes, uncomplicated; E11.9 Type 2 diabetes mellitus without complications; E03.9 Hypothyroidism, unspecified; F41.9 Anxiety disorder, unspecified; F32.9 Major depressive disorder, single episode, unspecified; F11.20 Opioid dependence, uncomplicated
CPT/HCPCS: J1885; J2270; J2550; J3360

== ENCOUNTER 2016-10-02 11:50 | Emergency (ER) | payer SELFPAY ==
--- NOTE | ~2016-10-02 | ER ---
PATIENT'S NAME: ALEXEY KUHN [facility] AGE: 45 Y [address] ROOM: [place] [address] LOCATION: [facility] ADMIT DATE: 10/02/2016 ER/Outpatient Report DISCHARGE DATE: 10/02/2016 FAMILY PHYSICIAN: Travon Dugan MD Resident ATTENDING PHYSICIAN: Nick Lowe Admission date and time documented in the medical record. I saw the patient at 1205 hours. CHIEF COMPLAINT: Low back pain. HISTORY OF PRESENT ILLNESS: This is a 45-year-old male, who comes in with chronic low back pain. I saw him two or three times last week and yesterday and now today again. No new changes. No cough, colds, flus, fever, chills, sweats. No new neurological changes. He continues to have chronic low back pain, worse on the left side. HOME MEDICATIONS: See attached medication list. ALLERGIES: SULFA. SOCIAL HISTORY: The patient smokes half pack of cigarettes a day. Chews, occasional intake of alcohol. SIGNIFICANT PAST MEDICAL HISTORY: Tobacco abuse, dyslipidemia, nzu-yqepxiw-jiuanhrdc diabetes mellitus type 2, hypothyroidism, chronic back pain, anxiety, depression, opioid dependence. OPERATIONS: Left shoulder surgery, bilateral knee surgery. REVIEW OF SYSTEMS: All systems reviewed by me are negative with the exception of those discussed in the history of present illness. PHYSICAL EXAMINATION: VITAL SIGNS: Temperature 98.1, pulse 115, respirations 20, blood pressure 150/73, O2 saturation on room air is 99%. HEENT: Negative. LUNGS: Clear. HEART: Regular. PATIENT'S NAME: ALEXEY KUHN [facility] AGE: 45 Y [address] ROOM: [place] [address] LOCATION: [facility] ADMIT DATE: 10/02/2016 ER/Outpatient Report DISCHARGE DATE: 10/02/2016 FAMILY PHYSICIAN: Travon Dugan MD Resident ATTENDING PHYSICIAN: Nick Lowe ABDOMEN: Soft, nontender. Good bowel tones. NEUROVASCULAR: Intact. IMPRESSION: Chronic low back pain. PLAN: The patient was given morphine 1 mg, Valium 5 mg, Toradol 60 mg IM in the emergency room. Discharged home. Observation. Activity as tolerated. Continue present home medications and care. Follow up with personal physician in 1 to 2 days. MD ARVIND OSEGUERA/giovana /[id number] d: 10/02/162032 t: 10/13/16 181, OUTPATIENT REPORT
== END 2016-10-02 12:25 | disposition disaster alternative care site (69) ==
LOC: GMED 11:50
DX: G89.29 Other chronic pain (principal); M54.5 Low back pain; E11.9 Type 2 diabetes mellitus without complications; E78.5 Hyperlipidemia, unspecified; E03.9 Hypothyroidism, unspecified; F41.9 Anxiety disorder, unspecified; F32.9 Major depressive disorder, single episode, unspecified; F17.210 Nicotine dependence, cigarettes, uncomplicated; F11.20 Opioid dependence, uncomplicated; Z88.2 Allergy status to sulfonamides; Z79.899 Other long term (current) drug therapy; Z98.890 Other specified postprocedural states
CPT/HCPCS: J1885; J2270; J3360

== ENCOUNTER 2016-10-27 17:33 | Emergency (ER) | payer SELFPAY ==
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
[2016-10-27 20:27] LABS: BASOPHIL % 0.6 %; EOSINOPHIL # 0.2 K/uL (0.0-0.5); EOSINOPHIL % 2.2 %; HEMATOCRIT 34.2 % (37.0-53.0); HEMOGLOBIN 11.1 g/dL (12.0-17.0); IMMATURE GRANULOCYTE % 0.3 %; LYMPHOCYTE % 30.3 %; MCH 28.1 pg (27.0-34.0); MCHC 32.5 gm/dL (32.0-36.5); MCV 86.6 fl (83.0-98.0); MONOCYTE # 0.6 K/uL (0.0-1.0); MONOCYTE % 8.6 %; MPV 9.2 fl (9.4-12.4); NEUTROPHIL # (ANC) 3.9 K/uL (1.4-9.0); NRBC % 0 /100WBC (0-0.00); PLATELET COUNT 285 K/uL (150-450); RBC 3.95 M/uL (4.00-6.00); RDW-CV 13.2 % (11.9-14.6); WBC 6.7 K/uL (4.0-11.0)
[2016-10-27 20:56] LABS: ALBUMIN 2.8 gm/dL (3.5-5.0); ALK PHOS 57 IU/L (33-138); ALT 28 IU/L (12-78); AST 13 IU/L (10-40); BLOOD UREA NITROGEN 12 mg/dL (6-24); CALCIUM 8.9 mg/dL (8.5-10.5); CHLORIDE 111 mMol/L (96-110); CO2 25 mMol/L (22-32); ESTIMATED GFR (MDRD EQUATION) > 60; POTASSIUM 3.7 mMol/L (3.7-5.1); TOTAL PROTEIN 6.3 g/dL (6.0-8.4)
[2016-10-27 20:57] LABS: ANION GAP 13.7 (10.0-19.0); SODIUM 146 mMol/L (135-145); TOTAL BILIRUBIN 0.2 mg/dL (0.0-1.5)
[2016-10-27 21:17] LABS: CPK 206 IU/L (35-332)
== END 2016-10-27 23:05 | disposition disaster alternative care site (69) ==
LOC: GMED 17:33
PROVIDERS: Emergency Medicine
DX: M54.9 Dorsalgia, unspecified (principal); G89.29 Other chronic pain; R00.1 Bradycardia, unspecified; F11.10 Opioid abuse, uncomplicated; E11.9 Type 2 diabetes mellitus without complications; E03.9 Hypothyroidism, unspecified; F17.210 Nicotine dependence, cigarettes, uncomplicated; Z98.890 Other specified postprocedural states; Z79.899 Other long term (current) drug therapy; Z79.891 Long term (current) use of opiate analgesic

== ENCOUNTER → 2016-11-06 | Outpatient (CLI) | payer SELFPAY ==
[2016-11-06 12:57] LABS: ALBUMIN 3.2 gm/dL (3.5-5.0); ALK PHOS 56 IU/L (33-138); ALT 57 IU/L (12-78); AST 81 IU/L (10-40); BLOOD UREA NITROGEN 12 mg/dL (6-24); CALCIUM 9.2 mg/dL (8.5-10.5); CHLORIDE 103 mMol/L (96-110); CO2 30 mMol/L (22-32); CREATININE 1.2 mg/dL (0.6-1.3); ESTIMATED GFR (MDRD EQUATION) > 60; SODIUM 139 mMol/L (135-145); TOTAL PROTEIN 7.2 g/dL (6.0-8.4)
[2016-11-06 13:00] LABS: TOTAL BILIRUBIN 0.6 mg/dL (0.0-1.5)
== END ==
LOC: LHHL 12:23
DX: M46.24 Osteomyelitis of vertebra, thoracic region (principal); Z45.2 Encounter for adjustment and management of vascular access device; Z79.2 Long term (current) use of antibiotics

== ENCOUNTER 2016-11-11 02:43 | Emergency (ER) | payer SELFPAY ==
--- NOTE | ~2016-11-11 | ER ---
PATIENT'S NAME: ALEXEY KUHN [facility] AGE: 45 Y [address] ROOM: [place] [address] LOCATION: ED ADMIT DATE: 11/11/2016 ER/Outpatient Report DISCHARGE DATE: 11/11/2016 FAMILY PHYSICIAN: Physician, Unknown ATTENDING PHYSICIAN: Dante Gee TIME SEEN: 0300 hours. HISTORY OF PRESENT ILLNESS: This is a 45-year-old male with a complex medical history including recent diagnosis of septic diskitis and osteomyelitis at T11 and T12. He is in with complaint of chest pain. He states that he ran out of his pain medicines last night and he awoke this morning with a left-sided parasternal chest pain. PAST MEDICAL HISTORY: Significant for the above-mentioned septic diskitis. He also has an extensive history of narcotic-seeking. CURRENT MEDICATIONS: He is on a continuous infusion of antibiotic and he takes oxycodone 40 mg every 4 hours. PHYSICAL EXAMINATION: GENERAL: Alert, cooperative male, in no acute distress. VITAL SIGNS: Stable. SKIN: Warm and dry. Color is normal. HEAD, EARS, EYES, NOSE, AND THROAT: Normal. NECK: Supple. HEART AND LUNGS: Normal. ABDOMEN: Soft. EXTREMITIES: Normal. NEUROLOGIC: Normal. LABORATORY DATA: EKG revealed normal sinus rhythm with no acute ST or T-wave changes. CBC: Comprehensive metabolic profile, and cardiac enzymes were negative. D-dimer was elevated. CT pulmonary angiogram was negative for PE. Repeat cardiac enzymes were similarly negative. ASSESSMENT: Chest pain of uncertain etiology/noncardiac. PLAN: Follow up with his chronic pain specialist regarding his ongoing pain PATIENT'S NAME: ALEXEY KUHN [facility] AGE: 45 Y [address] ROOM: [place], [place] [address] LOCATION: ED ADMIT DATE: 11/11/2016 ER/Outpatient Report DISCHARGE DATE: 11/11/2016 FAMILY PHYSICIAN: Physician, Unknown ATTENDING PHYSICIAN: Dante Gee medications. MD RIZWANA EDEN/riazl /[id number] d: 11/12/16 0526 t: 11/13/16 0444, OUTPATIENT REPORT
[2016-11-11 03:23] LABS: BASOPHIL % 0.6 %; EOSINOPHIL # 0.2 K/uL (0.0-0.5); HEMATOCRIT 33.9 % (37.0-53.0); HEMOGLOBIN 11.4 g/dL (12.0-17.0); IMMATURE GRANULOCYTE % 0.2 %; LYMPHOCYTE # 1.9 K/uL (0.8-4.0); LYMPHOCYTE % 30.1 %; MCH 28.6 pg (27.0-34.0); MCHC 33.6 gm/dL (32.0-36.5); MONOCYTE # 0.5 K/uL (0.0-1.0); MONOCYTE % 8.2 %; MPV 9.5 fl (9.4-12.4); NEUTROPHIL # (ANC) 3.7 K/uL (1.4-9.0); NEUTROPHIL % 57.9 %; NRBC % 0 /100WBC (0-0.00); PLATELET COUNT 298 K/uL (150-450); RBC 3.99 M/uL (4.00-6.00); RDW-CV 13.6 % (11.9-14.6); WBC 6.4 K/uL (4.0-11.0)
[2016-11-11 03:31] LABS: INR - (THERAPEUTIC) 1.22 (0.92-1.07); PROTIME 12.8 SECONDS (9.8-11.4); PTT 27 SECONDS (25-32)
[2016-11-11 03:33] LABS: AMPHETAMINE NEGATIVE (NEGATIVE); BARBITURATE NEGATIVE (NEGATIVE); COCAINE NEGATIVE (NEGATIVE); OPIATES NEGATIVE (NEGATIVE)
[2016-11-11 03:41] LABS: ALBUMIN 2.7 gm/dL (3.5-5.0); ALK PHOS 53 IU/L (33-138); ALT 24 IU/L (12-78); AST 12 IU/L (10-40); BLOOD UREA NITROGEN 8 mg/dL (6-24); CALCIUM 8.2 mg/dL (8.5-10.5); CHLORIDE 113 mMol/L (96-110); CO2 22 mMol/L (22-32); CPK 51 IU/L (35-332); ESTIMATED GFR (MDRD EQUATION) > 60; SODIUM 143 mMol/L (135-145); TOTAL PROTEIN 6.2 g/dL (6.0-8.4)
[2016-11-11 03:42] LABS: TOTAL BILIRUBIN 0.2 mg/dL (0.0-1.5)
== END 2016-11-11 05:38 | disposition disaster alternative care site (69) ==
LOC: GMED 02:43
PROVIDERS: Emergency Medicine
DX: R07.89 Other chest pain (principal); E11.9 Type 2 diabetes mellitus without complications; F17.220 Nicotine dependence, chewing tobacco, uncomplicated; M46.44 Discitis, unspecified, thoracic region; Z76.5 Malingerer [conscious simulation]; Z79.2 Long term (current) use of antibiotics; Z79.1 Long term (current) use of non-steroidal anti-inflammatories (NSAID); Z79.891 Long term (current) use of opiate analgesic; Z79.84 Long term (current) use of oral hypoglycemic drugs
CPT/HCPCS: J1170; J1885; Q9967

== ENCOUNTER → 2016-11-11 | Outpatient (CLI) | payer SELFPAY | END | disposition disaster alternative care site (69) | LOC: GAMB 02:20 | DX: R07.89 Other chest pain (principal); M54.9 Dorsalgia, unspecified; E11.9 Type 2 diabetes mellitus without complications; E03.9 Hypothyroidism, unspecified; Z79.899 Other long term (current) drug therapy; Z87.81 Personal history of (healed) traumatic fracture ==

== ENCOUNTER 2017-01-03 19:13 | Emergency (ER) | payer SELFPAY ==
--- NOTE | ~2017-01-03 | ER ---
PATIENT'S NAME: ALEXEY KUHN [facility] AGE: 46 Y [address] ROOM: [place] [address] LOCATION: ED ADMIT DATE: 01/03/2017 ER/Outpatient Report DISCHARGE DATE: 01/03/2017 FAMILY PHYSICIAN: PHYSICIAN, NO ATTENDING PHYSICIAN: Nick Lowe TIME OF ARRIVAL: 1918 hours. TIME OF EXAM: 1919 hours. CHIEF COMPLAINT: Lower abdominal pain. HISTORY OF PRESENT ILLNESS: The patient states approximately 3 hours ago he was sitting in his chair at home when he developed sudden lower abdominal pain. He states the pain is constant, he has never had pain like this before. He has not been nauseated, no vomiting, has not felt feverish or chills. Last bowel movement was today and it is normal. Last ate about 7 o'clock. Describes the pain as being sharp. Denies having any pain with urination or frequency of urination. ALLERGIES: MORPHINE. CURRENT MEDICATIONS: On his chart and reviewed by me. PAST MEDICAL HISTORY: Mfy-njesvie-jjxsatlhp diabetes, hypothyroidism, recently had osteomyelitis, and he does have history of drug-seeking. SOCIAL HISTORY: Smokes 3/4th of a pack per day and has for the last 20 years. He also chews tobacco. Denies use of drugs or alcohol. He presents to the ER accompanied by his mother. Denies having a primary care provider. REVIEW OF SYSTEMS: Negative other than those mentioned in his HPI. PHYSICAL EXAMINATION: VITAL SIGNS: He weighed 79.3 kg. Blood pressure was 128/72, pulse of 122, respirations 24, temp of 98, tympanic, and O2 sat was 98% on room air. GENERAL: He is awake, alert, oriented x4. PATIENT'S NAME: ALEXEY KUHN [facility] AGE: 46 Y [address] ROOM: [place] [address] LOCATION: [facility] ADMIT DATE: 01/03/2017 ER/Outpatient Report DISCHARGE DATE: 01/03/2017 FAMILY PHYSICIAN: PHYSICIAN, NO ATTENDING PHYSICIAN: Nick Lowe SKIN: [place], warm, and dry. RESPIRATIONS: Even and nonlabored. He is lying on the cart in a curled up position holding his lower abdomen stating that it hurts quite a bit. Lung sounds were clear throughout. HEART: Regular rate and rhythm. ABDOMEN: Soft. Bowel sounds are hypoactive. EMERGENCY ROOM COURSE: Saline lock was initiated. Fluids of normal saline were started at a wide- open rate. He was given Toradol 30 mg IV. Lab work was drawn. CBC comes back with a white count of 12.2, his hemoglobin is 15.8 with hematocrit of 44.6, and his initial lactate is 5. His venous blood gases show pH is 7.43, pCO2 is 32 with a HC03 of 21.2. Chem panel: Sodium is 135, potassium is 3.5, and chloride is 102. His glucose was 328, BUN is 9 with creatinine of 1.3. His eGFR was 66. Amylase was 22, lipase is 102. BHB is 1.6. Procalcitonin is normal. Clean-catch UA was obtained, it is positive for glucose; otherwise, negative for infection. Troponin is negative. Cortisol was 24.5. I did initiate the sepsis protocol with him being tachycardic and having elevated white count, elevated lactate, fluids of normal saline were infused at a wide-open rate for a total of 2370 mL then at 150ml/hr. He was given fentanyl 50 mcg IV for pain. Chest x-ray was completed. No abnormality is seen. Blood cultures were obtained. CT of the abdomen was completed and Radiology reports atrophy of the left kidney; otherwise, normal CT. Did start on Zosyn 4.[address] Whitt was contacted and he did come and see the patient. The patient was evaluated by him. 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 He was given the option to recheck his lactate and be discharged home or make arrangements for him to stay here in the hospital and he preferred to go home. We did recheck his lactate that came back at 2.3. He had a total of 3 L of fluids. Patient asked for pain medication. Was offered Toradol IM but he refused. IMPRESSION: Dehydration due to hyperglycemia. PLAN: Home, rest, and fluids. Follow up with their primary provider in the next 24 to 48 hours. The patient verbalized understanding. AG DAVIS APRN FOR MD MALI OSEGUERA/modl PATIENT'S NAME: ALEXEY KUHN [facility] AGE: 46 Y [address] ROOM: [place] [address] LOCATION: [facility] ADMIT DATE: 01/03/2017 ER/Outpatient Report DISCHARGE DATE: 01/03/2017 FAMILY PHYSICIAN: BREANNA LOZA ATTENDING PHYSICIAN: Nick Lowe /[id number] d: 01/04/17 0012 t: 01/04/17 1819, OUTPATIENT REPORT
--- NOTE | ~2017-01-03 | CON ---
PATIENT'S NAME: ALEXEY KUHN [facility] AGE: 46 Y [address] ROOM: [place] [address] LOCATION: [facility] ADMIT DATE: 01/03/2017 Consultation DISCHARGE DATE: 01/03/2017 FAMILY PHYSICIAN: PHYSICIAN, NO ATTENDING PHYSICIAN: Nick Lowe DATE OF CONSULTATION: 01/03/2017 REASON FOR CONSULTATION: Assessment for admission to the hospital. HISTORY OF PRESENT ILLNESS: This is a 46-year-old gentleman with a past medical history of heavy narcotic abuse, narcotic drug-seeking behavior, presented to the emergency department with a history of many emergency department visits with the similar complaints. Came with abdominal pain, which is located in the lower abdomen, it is sharp in character, all the time present, 03/05, without any alleviating or relieving factors despite the 100 mcg of fentanyl given in the emergency department. No nausea or vomiting. No chest pain, shortness of breath, cough, sputum production, headache, dizziness, trouble with the eyes, and trouble with the leg swelling. REVIEW OF SYSTEMS: All other systems reviewed and are negative except what is mentioned in the HPI. ALLERGIES: NO KNOWN DRUG ALLERGIES. PAST MEDICAL HISTORY: Type 2 diabetes mellitus, hypothyroidism, back pain, and heavy narcotic dependence. MEDICATIONS: Being reconciled right now. FAMILY HISTORY: Was reviewed and were negative for the current problem. SOCIAL HISTORY: Active smoker. Denies any illicit drug abuse, but has history of narcotic abuse. Has been fired by multiple physicians in the past for the similar problems. PHYSICAL EXAMINATION: PATIENT'S NAME: ALEXEY KUHN [facility] AGE: 46 Y [address] ROOM: [place] [address] LOCATION: [facility] ADMIT DATE: 01/03/2017 Consultation DISCHARGE DATE: 01/03/2017 FAMILY PHYSICIAN: PHYSICIAN, NO ATTENDING PHYSICIAN: Nick Lowe VITAL SIGNS: Heart rate 75, blood pressure 122/72, afebrile, and respiratory rate 16. GENERAL: He is having a lot of abdominal pain. Alert and oriented x3. HEENT: Head: Atraumatic and normocephalic. Eyes: Nonicteric. No pallor. Oropharynx: Moist mucous membranes. CARDIOVASCULAR: S1 and S2. No murmurs, gallops, or rubs. SKIN: Multiple tattoos noted. ABDOMEN: When initial palpation started, the patient jumped because of pain; but when distracted, there was no tenderness noted. No rigidity. No rebound tenderness. Bowel sounds are present. EXTREMITIES: No clubbing, cyanosis, or edema. PSYCH: Normal affect, mood, and speech. Cranial nerves II through XII intact. No motor or sensory deficit. PSYCH: Drug-seeking behavior noted. LAB WORK: A CT scan done, abdomen and pelvis, was unremarkable. Have left atrophic kidney, which needs to be investigated by the primary care physician. Chest x- ray was unremarkable as well. Lab work was impressive for lactic acidosis and hyperglycemia. Lactate level was 5.0. Glucose level was 313. ASSESSMENT AND PLAN: Lactic acidosis, most likely secondary to dehydration. For this abdominal pain, there is no etiology at this point. Lipase, CBC, and procalcitonin have been negative. I offered admission to the patient, but he said he needs to go to the news assistant and have to be out of the hospital by 6 in the morning. Other alternate option was advised that to recheck his labs after IV fluid resuscitation and if lab improvement is noted, he can be discharged. He kept asking for pain medication, which I said we cannot give him any more pain medication given the higher doses we have already given him. If any further pain medication required, I would advise Toradol IM. The patient needs to follow up with the primary care physician. I discussed the case with the ER provider. MD JAMIE CEBALLOS/giovana /[id number] d: 01/04/17 0005 t: 01/06/172040, CONSULTATION REPORT
[2017-01-03 19:43] LABS: BICARBONATE 21.2 mmol/L (18.0-23.0); PCO2 32 mmHg (35-45); PO2 51 mmHg (80-90)
[2017-01-03 19:44] LABS: BASOPHIL % 0.3 %; EOSINOPHIL % 0.3 %; HEMATOCRIT 44.6 % (37.0-53.0); HEMOGLOBIN 15.8 g/dL (12.0-17.0); IMMATURE GRANULOCYTE % 0.3 %; LYMPHOCYTE # 2.2 K/uL (0.8-4.0); LYMPHOCYTE % 18.2 %; MCH 28.8 pg (27.0-34.0); MCHC 35.4 gm/dL (32.0-36.5); MCV 81.2 fl (83.0-98.0); MONOCYTE # 0.7 K/uL (0.0-1.0); MONOCYTE % 5.6 %; MPV 9.7 fl (9.4-12.4); NEUTROPHIL # (ANC) 9.2 K/uL (1.4-9.0); NEUTROPHIL % 75.3 %; NRBC % 0 /100WBC (0-0.00); PLATELET COUNT 274 K/uL (150-450); RBC 5.49 M/uL (4.00-6.00); RDW-CV 13.5 % (11.9-14.6); WBC 12.2 K/uL (4.0-11.0)
[2017-01-03 20:07] LABS: ALBUMIN 3.7 gm/dL (3.5-5.0); CALCIUM 9.5 mg/dL (8.5-10.5); CREATININE 1.3 mg/dL (0.6-1.3); TOTAL PROTEIN 7.9 g/dL (6.0-8.4)
[2017-01-03 20:12] LABS: ANION GAP 17.9 (10.0-19.0); POTASSIUM 3.9 mMol/L (3.7-5.1); TOTAL BILIRUBIN 0.6 mg/dL (0.0-1.5)
[2017-01-03 20:28] LABS: INR - (THERAPEUTIC) 1.11 (0.92-1.07); PROTIME 11.7 SECONDS (9.8-11.4)
[2017-01-03 20:52] LABS: BILIRUBIN URINE NEGATIVE (NEGATIVE); BLOOD URINE NEGATIVE /UL (NEGATIVE); COLOR URINE YELLOW (YELLOW); GLUCOSE URINE 1000 mg/dL (NEGATIVE); KETONE URINE NEGATIVE (NEGATIVE); LEUKOCYTES URINE NEGATIVE /UL (NEGATIVE); NITRITE URINE NEGATIVE (NEGATIVE); PROTEIN URINE NEGATIVE (NEGATIVE); SPEC GRAVITY URINE 1.005 (1.003-1.035); TURBIDITY URINE CLEAR (CLEAR); UROBILINOGEN URINE NORMAL (NORMAL)
== END 2017-01-03 22:19 | disposition disaster alternative care site (69) ==
LOC: GMED 19:13
PROVIDERS: Nurse Practitioner Family
DX: E11.65 Type 2 diabetes mellitus with hyperglycemia (principal); E86.0 Dehydration; E03.9 Hypothyroidism, unspecified; F17.210 Nicotine dependence, cigarettes, uncomplicated; Z79.84 Long term (current) use of oral hypoglycemic drugs; Z88.5 Allergy status to narcotic agent; Z79.899 Other long term (current) drug therapy
CPT/HCPCS: J1885; J2543; J3010; J7030; Q9967

== ENCOUNTER 2017-01-12 08:33 | Emergency (ER) | payer SELFPAY ==
--- NOTE | ~2017-01-12 | ER ---
PATIENT'S NAME: ALEXEY KUHN [facility] AGE: 46 Y [address] ROOM: [place] [address] LOCATION: ED ADMIT DATE: 01/12/2017 ER/Outpatient Report DISCHARGE DATE: 01/12/2017 FAMILY PHYSICIAN: PHYSICIAN, NO ATTENDING PHYSICIAN: Ang Bond CHIEF COMPLAINT: Detox. HISTORY OF PRESENT ILLNESS: Mr. Kuhn presents with shaking, diarrhea, unsettledness, and rapid heart rates. He states he is detoxing from narcotics. He has a history of heavy narcotic dependence. He has gone through his narcotic prescriptions from his pain physician too rapidly, and around midnight about 2 hours, after he took his last oxycodone, he began to be tremulous and has had multiple episodes of diarrhea since then. He states that he is detoxing. He does not want to continue taking narcotics, but does not know where else to turn. He states his pain physician is out of the country recently and has been unable to contact him for close followup. He states he has been taking more than he should of his pain medications. PAST MEDICAL HISTORY: Documented in the record and reviewed by me. SOCIAL HISTORY: Documented in the record and reviewed by me. MEDICATIONS: Documented in the record and reviewed by me. ALLERGIES: DOCUMENTED IN THE RECORD AND REVIEWED BY ME. REVIEW OF SYSTEMS: All systems were reviewed and negative except as noted in the HPI. PHYSICAL EXAMINATION: VITAL SIGNS: Blood pressure 147/92, pulse 130, respiratory rate 20, temperature 97.4, and SpO2 is 94% on room air. GENERAL: Age-appropriate male, in obvious distress and with outward signs of pain. NEUROLOGIC: The patient is awake, he is unsettled. He is jittery and tremulous. He is slightly diaphoretic. He has his chronic back pain and feels like he is otherwise okay with no focal neurological deficits. HEENT: Normocephalic and atraumatic. Eyes are PERRL. Oropharynx is clear. PATIENT'S NAME: ALEXEY KUHN [facility] AGE: 46 Y [address] ROOM: [place] [address] LOCATION: [facility] ADMIT DATE: 01/12/2017 ER/Outpatient Report DISCHARGE DATE: 01/12/2017 FAMILY PHYSICIAN: PHYSICIAN, NO ATTENDING PHYSICIAN: Ang Bond NECK: Supple. Trachea is midline. CHEST: Tachycardic. No murmurs. LUNGS: Grossly clear. ABDOMEN: Appears benign. EXTREMITIES: Warm and well perfused. SKIN: Slightly diaphoretic, but clean and intact, otherwise. LABORATORY DATA AND IMAGING STUDIES: Labs and X-rays: None. IMPRESSION: Opioid withdrawal. EMERGENCY DEPARTMENT COURSE: The patient was seen and evaluated as above. He was given 2 mg of IM Dilaudid. He had marked improvement in his symptoms and heart rate improved. At that time, I was able to have a conversation with the individual. We spent a significant amount of time talking about the options currently. He does not want to be admitted. He would like a prescription. I stated that this would break his pain contract, and he will likely be fired and be worse off than before. He stated he would have to take his chances. Although I think it is unlikely that this patient would have significant risks of from opioid withdrawal, it is within the realm of possibility. Based on his presentation, I believe he is actually withdrawing given his history of heavy dependence on narcotics. I was unable to secure his prescriptions and fills recently from the prescription drug database currently, and after extensive discussion with the patient, I will give him four days worth of oxycodone. I explained that he needs to follow up with his pain provider. He needs to get in for the detox clinics. The emergency department is not the appropriate place for him to be for these issues. He expresses understanding. He was discharged in improved condition. MD MARILU CHILDERS/giovana /[id number] d: 01/12/171721 t: 01/22/17621, OUTPATIENT REPORT
== END 2017-01-12 10:30 | disposition disaster alternative care site (69) ==
LOC: GMED 08:33
DX: F11.23 Opioid dependence with withdrawal (principal); E11.9 Type 2 diabetes mellitus without complications; E03.9 Hypothyroidism, unspecified; M86.9 Osteomyelitis, unspecified; Z88.2 Allergy status to sulfonamides; Z79.84 Long term (current) use of oral hypoglycemic drugs; Z79.891 Long term (current) use of opiate analgesic; Z79.899 Other long term (current) drug therapy; Z98.890 Other specified postprocedural states
CPT/HCPCS: J1170

== ENCOUNTER 2017-01-14 10:31 | Emergency (ER) | payer SELFPAY | END 2017-01-14 11:01 | disposition disaster alternative care site (69) | LOC: GMED 10:31 | DX: Z53.21 Procedure and treatment not carried out due to patient leaving prior to being seen by health care provider (principal) ==

== ENCOUNTER 2017-01-16 08:46 | Emergency (ER) | payer SELFPAY ==
--- NOTE | ~2017-01-16 | ER ---
PATIENT'S NAME: ALEXEY KUHN [facility] AGE: 46 Y [address] ROOM: [place] [address] LOCATION: [facility] ADMIT DATE: 01/16/2017 ER/Outpatient Report DISCHARGE DATE: 01/16/2017 FAMILY PHYSICIAN: PHYSICIAN, NO ATTENDING PHYSICIAN: Ang Bond CHIEF COMPLAINT: Opioid addiction and withdrawal. HISTORY OF PRESENT ILLNESS: Mr. Kuhn presents for treatment of his withdrawal. He is a known opioid user. I saw him on Saturday. I provided him a prescription to get him through with his withdrawal symptoms until today. In the interim, he was able to discuss his presentation with his current pain doctor and in fact did sever that relationship. He states that he has a plan for the next week. He has no intention to harm himself and states again that he wants to get off the pain medication, but his back hurts too bad, and he needs them. PAST MEDICAL HISTORY: Documented on the record and reviewed by me. SOCIAL HISTORY: Documented on the record and reviewed by me. MEDICATIONS: Documented on the record and reviewed by me. ALLERGIES: DOCUMENTED ON THE RECORD AND REVIEWED BY ME. REVIEW OF SYSTEMS: All systems reviewed and negative except as noted in the HPI. PHYSICAL EXAMINATION: VITAL SIGNS: Blood pressure 159/96, pulse 90, respiratory rate is 18, temperature 97.8, and SpO2 is 97% on room air. Pain appears to be minimal. GENERAL: Age-appropriate male, sitting upright on the exam table, in no apparent pain or distress. NEUROLOGIC: Awake and alert. GCS 15. No focal deficits. No asymmetry. HEENT: Normocephalic, atraumatic. Eyes are PERRL. Oropharynx is clear. NECK: Supple. Trachea is midline. CHEST: Even and unlabored respirations. HEART: Rate is regular. ABDOMEN: Benign. EXTREMITIES: Warm and well perfused. PATIENT'S NAME: ALEXEY KUHN [facility] AGE: 46 Y [address] ROOM: [place] [address] LOCATION: [facility] ADMIT DATE: 01/16/2017 ER/Outpatient Report DISCHARGE DATE: 01/16/2017 FAMILY PHYSICIAN: PHYSICIAN, NO ATTENDING PHYSICIAN: Ang Bond SKIN: Without gross rashes. Brisk capillary refill in hands. LABORATORY AND X-RAY DATA: None. IMPRESSION: Opioid addiction and withdrawal symptoms. EMERGENCY DEPARTMENT COURSE: The patient was seen and evaluated as above. I have reviewed the situation with him. He has made some poor decisions, and he acknowledges this. I have explained to him that I can no longer help him after today. I will provide him with one last prescription of oxycodone 15 mg tablets, 20. I informed him that he will receive no further narcotic prescriptions from this emergency department outside of new issues. He is to seek care elsewhere for this issue as I have nothing else to offer him at this time. The only other option will be hospitalization if he returns here for this issue. I will not administer any further narcotics to Mr. Kuhn . I gave him explicit instructions that the purpose of this prescription is to treat his withdrawal symptoms only, and he needs to follow up with his surgeon and newly established pain physician within the week. MD MARILU CHILDERS/giovana /[id number] d: 01/16/17 1849 t: 01/22/17621, OUTPATIENT REPORT
== END 2017-01-16 10:10 | disposition disaster alternative care site (69) ==
LOC: GMED 08:46
DX: F11.23 Opioid dependence with withdrawal (principal); Z88.2 Allergy status to sulfonamides; Z79.84 Long term (current) use of oral hypoglycemic drugs; Z79.899 Other long term (current) drug therapy